=== PATIENT | female | born 2000 | race Caucasian/White ===

== ENCOUNTER 2023-08-21 21:59 | Emergency (ER) | payer OTHER, SELFPAY ==
[2023-08-21 22:06] VITALS: BP 105/69
[2023-08-21 22:24] LABS: % Basophils 0.6 % (0-2); % Eosinophils 1.8 % (0-6); % Immature Granulocytes 0.5 % (0-0.5); % Lymphocytes 41.2 % (20.5-51.1); % Monocytes 9.8 % (1.7-9.3); % Neutrophils 46.1 % (42.2-75.2); Absolute Basophils 0.1 10^3/uL (0-0.2); Absolute Eosinophils 0.2 10^3/uL (0-0.7); Absolute Immature Granulocytes 0.1 10^3/uL (0-0.05); Absolute Lymphocytes 4.3 10^3/uL (1.2-3.4); Absolute Neutrophils 4.8 10^3/uL (1.4-6.5); Hematocrit 49.9 % (37.0-47.0); Hemoglobin 17.5 g/dL (12.0-16.0); Mean Corp Hgb Conc. 35.1 g/dL (33.0-37.0); Mean Corpuscular Hgb 29.9 pg (27.0-31.0); Mean Corpuscular Volume 85.2 fL (81.0-99.0); Mean Platelet Volume 9.2 fL (7.4-10.4); Nucleated Red Blood Cells % 0 %; Platelet Count 384 10^3/uL (130-400); Red Blood Cell Count 5.86 10^6/uL (4.20-5.40); Red Cell Dist. Width 13.9 % (11.5-14.5); White Blood Cell Count 10.3 10^3/uL (4.8-10.8)
[2023-08-21 22:38] LABS: ALT (SGPT) 40 U/L (0-35); AST (SGOT) 38 U/L (14-36); Alkaline Phosphatase 76 U/L (38-126); Blood Urea Nitrogen 7 mg/dl (7-17); Calcium 9.8 mg/dl (8.4-10.2); Carbon Dioxide 15 mmol/L (22-30); Chloride 110 mmol/L (98-107); Glucose 104 mg/dl (70-99); Potassium 3.7 mmol/L (3.5-5.1); Sodium 144 mmol/L (135-145); Total Bilirubin 0.9 mg/dl (0.2-1.3); Total Protein 7.9 g/dl (6.3-8.2); eGFR > 60.00
[2023-08-21 23:24] LABS: Urine Albumin Trace (Neg - Trace); Urine Bilirubin Negative (Negative); Urine Character Clear (Clear); Urine Color Yellow; Urine Glucose Trace (Negative); Urine Ketone 1+ (Negative); Urine Leukocyte 2+ (Negative); Urine Nitrite Negative (Negative); Urine Occult Blood 1+ (Negative); Urine Specific Gravity 1.025 (<1.030); Urine Urobilinogen Negative (Neg - 1+)
[2023-08-21 23:57] LABS: Urine Mucus Many; Urine Squamous Cell >30 /LPF (Few)
[2023-08-21 23:58] LABS: Urine Amorphous Seen; Urine Bacteria Many (Negative); Urine Urothelial Cell >30 /LPF (FEW); Urine White Cell >100 /HPF (0-5)
[2023-08-22] MEDS: NSS 1000 IV (01:27)
[2023-08-22] MEDS: PROTONIX IV 80 MG IV (01:28)
[2023-08-22] MEDS: CARAFATE 1 GRAM PO (01:28)
[2023-08-22] MEDS: ZOFRAN 4 MG IV (01:28)
--- NOTE | 2023-08-22 01:30 | ED.GENMED ---
History of Present Illness
General
Chief Complaint: Abdominal Symptoms
Source: patient, records and family
Exam Limitations: none
Time Seen by Provider: 08/22/23 01:10
Nursing documentation reviewed up to this point in time: agreed with
Travel History
Have you had any contact with someone who has COVID-19?: No
Do you have any symptoms of coronavirus? Fever > 100 degrees, chills, cough, shortness of breath, sore throat, loss of taste or smell, muscle aches, or headache?: No
History of Present Illness
History of Present Illness:
Patient is a 22-year-old transitioning female with a history of bilateral mastectomy and on testosterone replacement who presents to the emergency department with nausea and vomiting that started around 830 tonight and has gotten progressively
worse. Patient denies fever or chills. Patient denies any diarrhea. Patient denies abdominal pain. Patient over the past years had GI issues with nausea and vomiting and occasional pain. Patient denies any nasal congestion or sore throat.
Patient denies any back or flank pain. Patient denies any dysuria, hematuria, urgency or frequency. Patient does have a history of pyelonephritis in the past.
Past History
Past History
ED Past Medical History: Psychiatric
ED Past Surgical History: Other
Social History
Tobacco: Non-smoker
Review of Systems
Review of Systems
All Other Systems: ROS reviewed and negative except as documented in HPI and ROS
Constitutional: Denies fever, fatigue or chills
EENT: Reports no symptoms
Respiratory: Reports no symptoms
ABD/GI: Reports nausea, vomiting and anorexia; Denies abdominal pain, diarrhea or constipated
: Reports no symptoms
Musculoskeletal: Reports no symptoms
Skin: Reports no symptoms
Neurological: Reports no symptoms
Hematologic/Lymphatic: Reports no symptoms
Psychiatric: Reports no symptoms
Phy Exam
Physical Exam
Physical Exam:
Physical Exam
General: mild distress, alert and appropriate, well nourished, dry mucous membranes
HENT: Normocephalic, supple with no lymphadenopathy, no thyromegaly
Eyes: Clear sclera, conjuctiva without injection
Heart: Regular rhythm and rate. No S3, S4. No murmur.
Lungs: No respiratory distress, no stridor, lung sounds clear and equal bilaterally
Abdomen: Soft, minimal midepigastric tenderness without guarding or rebound, no organomegaly, no CVA tenderness, BS good
Neuro: Alert and oriented x 3, CN II - XII intact, no motor focality, no cerebellar dysfunction
Skin: no rash
Psychiatric: well kept. interactive and cooperative
Extremities: No edema, cyanosis, tenderness, Good and equal peripheral pulses.
Scores
Heart Failure Risk
Heart Failure Risk Score: Not Applicable
Heart Score for Chest Pain Patients
STEMI patient?: Not applicable
Withdrawal Assessment of Alcohol
Withdrawal Assessment Completed?: Not applicable
Course
Orders/Labs/Results
Orders:
Orders
08/21/23 22:18
Complete Blood Count/With Diff Urgent
Comprehensive Metabolic Panel Urgent
08/21/23 23:14
Urinalysis Reflex To Culture Urgent
Date Specimen was Collected: 08/21/23
Time Specimen was Collected: 22:11
Urine Microscopic Reflex Cult Urgent
Urine Culture Urgent
RUY Source: U
Specimen Description:
Date Specimen was Collected: 08/21/23
Time Specimen was Collected: 22:11
08/22/23 01:17
0.9% Sodium Chloride 1000 ml [Nss] 1,000 ml IV BOLUS
Ondansetron Injectable [Zofran] 4 mg IV NOW STA
Pantoprazole [Protonix IV] 80 mg IV NOW STA
Sucralfate [Carafate] 1 gram PO NOW STA
Abnormal Lab Results
08/21/23 08/21/23
22:18 23:14
RBC 5.86 H 10^6/uL
(4.20-5.40)
Hgb 17.5 H g/dL
(12.0-16.0)
Hct 49.9 H %
(37.0-47.0)
Abs Immat Gran (auto) 0.1 H 10^3/uL
(0-0.05)
Absolute Lymphs (auto) 4.3 H 10^3/uL
(1.2-3.4)
Absolute Monos (auto) 1.0 H 10^3/uL
(0.1-0.6)
Monocytes % 9.8 H %
(1.7-9.3)
Chloride 110 H mmol/L
(98-107)
Carbon Dioxide 15 L mmol/L
(22-30)
Glucose 104 H mg/dl
(70-99)
AST 38 H U/L
(14-36)
ALT 40 H U/L
(0-35)
Urine Ketones 1+ A
(Negative)
Ur Occult Blood Reflex 1+ A
(Negative)
Leukocyte Esterase Rfl 2+ A
(Negative)
Urine RBC 7-10 A /HPF
(0-2)
Urine WBC (Reflex) >100 A /HPF
(0-5)
Urine Bacteria (Reflex) Many A
(Negative)
Urine Glucose Trace A
(Negative)
08/21/23 22:18
08/21/23 22:18
Vital Signs
Initial and Last Documented VS:
Initial Vital Signs
Temp Pulse Resp BP Pulse Ox
97.7 F 68 16 105/69 98
08/21/23 22:06 08/21/23 22:06 08/21/23 22:06 08/21/23 22:06 08/21/23 22:06
Last Documented Vital Signs
Temp Pulse Resp BP Pulse Ox
97.7 F 68 16 105/69 98
08/21/23 22:06 08/21/23 22:06 08/21/23 22:06 08/21/23 22:06 08/21/23 22:06
*Pulse Oximetry
Patient hypoxic: no
*EKG
Interpreted by ED Provider?: NA
*Fuel Dock Attendant Interpretation
Rate: Fuel Dock Attendant- N/A
*Critical Care Note
Total Time (30-74mins, 75-104mins- exclusive of procedures): Not Applicable
Update Note
Update Note:
Patient has been placed on famotidine by sail repair person 3 days ago. Will have the patient continue diet and start the Carafate and Zofran. Patient will need to follow with gastroenterology for possible endoscopy.
ED Attending Note
-
Portions of this chart may have been created with voice recognition software.� Occasional wrong word or��sound alike� substitutions may have occurred due to the inherent limitations of voice recognition software.
Discharge Plan
Departure
Patient Disposition: Home (Routine Discharge)
Date of Disposition: 08/22/23
Time of Disposition: 02:55
Patient with high blood pressure during this ER visit?: No
Condition: Fair
Covid-19: Not Applicable
Discharge Problem:
Acute gastritis without hemorrhage
Instructions: [place] Diet, Gastritis (DC)
Prescriptions:
New
sucralfate [Carafate] 1 gram tablet
1 g PO QID Qty: 60 0RF
ondansetron 8 mg tablet,disintegrating
8 mg PO TID PRN (Reason: nausea and vomiting) Qty: 30 0RF
No Action
cefuroxime axetil 500 MG tablet
500 mg PO BID Qty: 20 0RF
Rx Instructions:
Tab 1 PO BID for 10 days for pyelonephritis.
Referrals:
Porfirio Proctor MD [Family Provider] - Follow up in 5-7 days
Activity Restrictions/Additional Instructions:
Continue present medications and follow-up with gastroenterology as scheduled. See your physician for quick check in a few days. Any increasing pain or vomiting please return.
Interventions
Interventions:
*Risk Screen - Suicide Last Done: 08/22/23 01:29
*General Assessment Last Done: 08/22/23 01:29
*Neglect/Abuse Screening Last Done: 08/22/23 01:29
ED- Fall Risk Assessment Last Done: 08/22/23 01:29
*ED COVID-19 Vaccine History Last Done: 08/21/23 22:06
YN-Fqqepj-Bexgyilbsc Assessment Last Done: 08/22/23 01:29
Discharge Date and Time
Print Language: [place]
== END 2023-08-22 03:07 | disposition home or self-care (01) ==
LOC: EMR 21:59
PROVIDERS: EMERGENCY PHYSICIAN Emergency Medicine; FAMILY PHYSICIAN Pediatrics
DX: K29.00 Acute gastritis without bleeding (principal)
CPT/HCPCS: 99284; 96374; 96375; 96361; 80053; 81003; 81015; 85025; 87086

== ENCOUNTER → 2025-04-07 09:36 | Outpatient (REF) | payer OTHER, BC, SELFPAY | LOC: HWRAD 09:36 | PROVIDERS: ATTENDING PHYSICIAN Family Medicine | DX: M25.561 Pain in right knee (principal) | CPT/HCPCS: 73564 ==